=== PATIENT | female | born 1980 | race American Indian/Alaskan Native ===

== ENCOUNTER 2019-05-02 00:33 | Emergency (ER) | payer MEDICAID ==
[2019-05-02 00:53] VITALS: BP 130/78
[2019-05-02] MEDS ORDERED: BUTALB/ACETAMINOPHEN/CAFFEINE TAB PO ONE (03:41)
[2019-05-02] MEDS ORDERED: AMOXICILLIN/K CLAV 875/125MG TAB PO ONE (03:41)
[2019-05-02] MEDS ORDERED: predniSONE 20 MG TAB PO ONE (03:41)
[2019-05-02] MEDS ORDERED: KETOROLAC 30 MG/1 ML INJ IM ONE (03:41)
--- NOTE | 2019-05-02 04:24 | Emergency Department Report ---
ED Headache HPI - General Chief Complaint: Headache Stated Complaint: HEADACHE X3WKS LT LEG AND ARM PAIN Source: patient Exam Limitations: no limitations - History of Present Illness Initial Comments: Patient is a 38-year-old of female with no past medical history who presents to the ED with complaint of acute onset persistent frontal sinus pressure and headache with lightheadedness intermittently for the last 1 month, worse in the last 2 days. The patient denies dizziness, nausea, vomiting, diarrhea, chest pain, shortness of breath, syncope, palpitations, seizures, nasal and sinus congestion, sore throat, fever, chills, traumatic injury or change in vision and neck pain Timing/Duration: constant, waxing and waning, other (1 month) Quality: severe, pressure, sharp Head Injury Location: frontal Recent Head Trauma: no recent headache/trauma Associated Symptoms: denies symptoms, facial pain, sinus infection. denies: confusion, fever/chills, loss of consciousness, nausea/vomiting, nasal drainage, numbness in legs/feet, seizures, stiff neck, vision changes, weakness Allergies/Adverse Reactions: Allergies No Known Allergies Allergy (Unverified 05/02/19 02:04) Home Medications: Ambulatory Orders Amoxicillin/Potassium Clav [Augmentin 875-125 Tablet] 1 each PO Q12H #20 tablet 05/02/19 Butalb/Acetamin/Caff 50-325-40 [Fioricet 50-325-40] 1 - 2 tab PO Q6HR PRN #15 tab 05/02/19 Ketorolac [Toradol] 10 mg PO Q8H PRN #20 tablet 05/02/19 Ondansetron [Zofran Odt] 4 mg PO Q6H PRN #15 tab.rapdis 05/02/19 Prednisone [predniSONE 10 mg (6-Day Pack, 21 Tabs)] 10 mg PO .TAPER #21 tab.ds.pk 05/02/19 ED Review of Systems ROS: Stated complaint: HEADACHE X3WKS LT LEG AND ARM PAIN Other details as noted in HPI Constitutional: denies: chills, fever Eyes: denies: eye pain, eye discharge, vision change ENT: congestion, other (palpable frontal sinus tenderness). denies: ear pain, t hroat pain Respiratory: denies: cough, shortness of breath, wheezing Cardiovascular: denies: chest pain, palpitations Endocrine: no symptoms reported Gastrointestinal: denies: abdominal pain, nausea, diarrhea Genitourinary: denies: urgency, dysuria, discharge Musculoskeletal: denies: back pain, joint swelling, arthralgia Skin: denies: rash, lesions Neurological: headache. denies: weakness, paresthesias Psychiatric: denies: anxiety, depression Hematological/Lymphatic: denies: easy bleeding, easy bruising ED Past Medical Hx - Past Medical History Previous Medical History?: Yes Additional medical history: Restless Leg Syndrome, Scoliosis - Surgical History Past Surgical History?: No - Social History Smoking Status: Current Every Day Smoker Substance Use Type: None - Medications Home Medications: Home Medications Medication Instructions Recorded Confirmed Last Taken Type Amoxicillin/Potassium Clav 1 each PO Q12H #20 tablet 05/02/19 Unknown Rx [Augmentin 875-125 Tablet] Butalb/Acetamin/Caff 50-325-40 1 - 2 tab PO Q6HR PRN #15 tab 05/02/19 Unknown Rx [Fioricet 50-325-40] Ketorolac [Toradol] 10 mg PO Q8H PRN #20 tablet 05/02/19 Unknown Rx Ondansetron [Zofran Odt] 4 mg PO Q6H PRN #15 tab.rapdis 05/02/19 Unknown Rx Prednisone [predniSONE 10 mg 10 mg PO .TAPER #21 tab.ds.pk 05/02/19 Unknown Rx (6-Day Pack, 21 Tabs)] ED Physical Exam - General Limitations: No Limitations General appearance: alert, in no apparent distress - Head Head exam: Present: atraumatic, normocephalic, normal inspection - Eye Eye exam: Present: normal appearance, PERRL, EOMI - ENT ENT exam: Present: normal exam, mucous membranes moist, TM's normal bilaterally, normal external ear exam, other (palpable severe frontal sinus tenderness) - Neck Neck exam: Present: normal inspection, full ROM - Respiratory Respiratory exam: Present: normal lung sounds bilaterally. Absent: respiratory distress, wheezes, chest wall tenderness, accessory muscle use, decreased breath sounds - Cardiovascular Cardiovascular Exam: Present: regular rate, normal rhythm, normal heart sounds. Absent: systolic murmur, diastolic murmur, rubs, gallop - GI/Abdominal GI/Abdominal exam: Present: soft, normal bowel sounds. Absent: tenderness, guarding, hyperactive bowel sounds, hypoactive bowel sounds - Extremities Exam Extremities exam: Present: normal inspection, full ROM, normal capillary refill - Back Exam Back exam: Present: normal inspection, full ROM. Absent: tenderness, muscle spasm, paraspinal tenderness - Neurological Exam Neurological exam: Present: alert, oriented X3, CN II-XII intact, normal gait, reflexes normal - Psychiatric Psychiatric exam: Present: normal affect, normal mood - Skin Skin exam: Present: warm, dry, intact, normal color. Absent: rash ED Course Vital Signs 05/02/19 00:40 Temperature 99.1 F Pulse Rate 96 H Respiratory 18 Rate Blood Pressure 130/78 O2 Sat by Pulse 98 Oximetry ED Medical Decision Making - Medical Decision Making This is a 38-year-old -[place] female with no past medical history presented to the ED with complaint of acute onset persistent frontal sinus pressure and headache for the last 1 month intermittently worse in the last 1 week. In the ED, patient is alert and oriented 3 and is not in distress. Patient was treated for pain in the ED and also given initial oral antibiotic for a suspected frontal sinusitis. Patient was sent home on medications and advised to follow-up with her primary care physician in 5-7 days for reevaluation. Patient was advised to return to the ED immediately if symptoms get worse. - Differential Diagnosis sinusitis; sinus headache, URI; migraine headache Critical care attestation.: If time is entered above; I have spent that time in minutes in the direct care of this critically ill patient, excluding procedure time. ED Disposition Clinical Impression: Sinus headache Acute frontal sinusitis Qualifiers: Recurrence: non-recurrent Qualified Code(s): J01.10 - Acute frontal sinusitis, unspecified Disposition: DC-01 TO HOME OR SELFCARE Is pt being admited?: No Does the pt Need Aspirin: No Condition: Stable Instructions: Acute Bacterial Rhinosinusitis (ED), Acute Headache (ED) Additional Instructions: Take medications with food, drink plenty of fluids and follow up with your primary care physician in 7-10 days for reevaluation. Return to the ED immediately if symptoms get worse. Prescriptions: Amoxicillin/Potassium Clav [Augmentin 875-125 Tablet] 1 each PO Q12H #20 tablet Butalb/Acetamin/Caff 50-325-40 [Fioricet 50-325-40] 1 - 2 tab PO Q6HR PRN #15 tab PRN Reason: Headache Prednisone [predniSONE 10 mg (6-Day Pack, 21 Tabs)] 10 mg PO .TAPER #21 tab.ds.pk Ketorolac [Toradol] 10 mg PO Q8H PRN #20 tablet PRN Reason: Pain Ondansetron [Zofran Odt] 4 mg PO Q6H PRN #15 tab.rapdis PRN Reason: Nausea Referrals: PRIMARY CARE, [Primary Care Provider] - 3-5 Days Time of Disposition: 04:28 Print Language: KINYARWANDA
== END 2019-05-02 04:59 | disposition home or self-care (01) ==
LOC: ED 00:33
DX: J01.10 Acute frontal sinusitis, unspecified (principal); R51 Headache; F17.200 Nicotine dependence, unspecified, uncomplicated; Z79.899 Other long term (current) drug therapy
CPT/HCPCS: 96372; 99282; J1885; J7512

== ENCOUNTER 2019-05-29 03:20 | Emergency (ER) | payer MEDICAID ==
[2019-05-29 03:39] VITALS: BP 116/85
--- NOTE | 2019-05-29 08:03 | Emergency Department Report ---
ED Back Pain/Injury HPI - General Chief Complaint: Back Pain/Injury Stated Complaint: PAIN ON LEFT SIDE Time Seen by Provider: 05/29/19 07:20 Source: patient Limitations: No Limitations - History of Present Illness Initial Comments: This is a 38-year-old female with no prior medical history who presents to ED complaining of left-sided flank pain that began last night. Patient denies any fall trauma or injuries. Patient denies any heavy lifting recently. Patient states pain is intermittent in and sometimes worse with movement. She denies nausea vomiting fever MD Complaint: back pain Place: home Radiation: none Severity: moderate Severity scale (0 -10): 6 Improves With: none - Related Data Previous Rx's Medication Instructions Recorded Last Taken Type Amoxicillin/Potassium Clav 1 each PO Q12H #20 tablet 05/02/19 Unknown Rx [Augmentin 875-125 Tablet] Butalb/Acetamin/Caff 50-325-40 1 - 2 tab PO Q6HR PRN #15 tab 05/02/19 Unknown Rx [Fioricet 50-325-40] Ondansetron [Zofran Odt] 4 mg PO Q6H PRN #15 tab.rapdis 05/02/19 Unknown Rx Prednisone [predniSONE 10 mg 10 mg PO .TAPER #21 tab.ds.pk 05/02/19 Unknown Rx (6-Day Pack, 21 Tabs)] Ketorolac [Toradol] 10 mg PO Q8H PRN #20 tablet 05/29/19 Unknown Rx Allergies Allergy/AdvReac Type Severity Reaction Status Date / Time No Known Allergies Allergy Unverified 05/02/19 02:04 ED Review of Systems ROS: Stated complaint: PAIN ON LEFT SIDE Other details as noted in HPI Comment: All other systems reviewed and negative ED Past Medical Hx - Past Medical History Restless Leg Syndrome, Scoliosis ED Back Pain Physical Exam - Exam General: Vital signs noted. No distress. Alert and acting appropriately. Back/Abdomen: No Abdominal Tenderness, No Perithoracic Tenderness, No Perilumbar Tenderness, No Sacroiliac Tenderness, No Flank Tenderness, No Straight Leg Raise Pain Neuro: Yes Normal Sensation, Yes Normal DTR's, Yes Normal Gait, No Motor Weakness ED Course Vital Signs 05/29/19 03:37 Temperature 97.4 F L Pulse Rate 86 Respiratory 20 Rate Blood Pressure 116/85 O2 Sat by Pulse 100 Oximetry Ed Back Pain Tests - Tests Tests: Normal UA ED Medical Decision Making - Medical Decision Making 38-year-old female who presented to ED with left flank pain Urinalysis urine test are negative, no abnormal findings Discussed findings with the patient. Patient received pain medication ED. she received IVf and Toradol Discussed patient follow up primary care physician. Vital signs are normal patient is in no acute distress. Referrals given the patient Discussed with patient if she has worsening symptoms to return to the ER immediately - Differential Diagnosis UTI, kidney stone, myalgia Critical care attestation.: If time is entered above; I have spent that time in minutes in the direct care of this critically ill patient, excluding procedure time. ED Disposition Clinical Impression: Acute left flank pain Disposition: TO HOME OR SELFCARE Is pt being admited?: No Does the pt Need Aspirin: No Condition: Stable Instructions: Flank Pain (ED) Additional Instructions: Follow-up with the primary care physician in 2-3 days. Take pain medication as pr If you have any worsening or new symptoms was returned to the ED Prescriptions: Ketorolac [Toradol] 10 mg PO Q8H PRN #20 tablet PRN Reason: Pain Referrals: DIANE EUGENE MD [Primary Care Provider] - 3-5 Days [facility] [Outside] - 3-5 Days [facility] [Outside] - 3-5 Days [facility] [Outside] - 3-5 Days Forms: Work/School Release Form(ED) Time of Disposition: 09:34
[2019-05-29] MEDS ORDERED: SODIUM CHLORIDE 0.9% 1000 ML 1,000 ML IV ONE (08:06)
[2019-05-29] MEDS ORDERED: ONDANSETRON 4 MG/2 ML INJ IV ONE (08:06)
[2019-05-29] MEDS ORDERED: KETOROLAC 30 MG/1 ML INJ IV ONE (08:06)
[2019-05-29 08:14] LABS: HCG Qualitative,Urine Negative (Negative)
[2019-05-29 08:16] LABS: Bilirubin,Urine NEG (Negative); Blood,Urine NEG (Negative); Color,Urine Yellow (Yellow); Mucus,Urine 2+ /HPF; Protein,Urine <15 mg/dL mg/dL (Negative)
== END 2019-05-29 09:46 | disposition home or self-care (01) ==
LOC: ED 03:20
DX: R10.9 Unspecified abdominal pain (principal); M54.9 Dorsalgia, unspecified; Z79.899 Other long term (current) drug therapy
CPT/HCPCS: 81001; 81025; 96374; 96375; 99283; J1885; J2405; J7030

== ENCOUNTER 2019-07-04 00:40 | Emergency (ER) | payer MEDICAID ==
[2019-07-04 00:59] VITALS: BP 130/88
== END 2019-07-04 04:00 | disposition left against medical advice (07) ==
LOC: ED 00:40
DX: M79.602 Pain in left arm (principal); Z53.21 Procedure and treatment not carried out due to patient leaving prior to being seen by health care provider

== ENCOUNTER 2019-08-15 16:03 | Emergency (ER) | payer SELFPAY ==
--- NOTE | 2019-08-15 19:51 | Emergency Department Report ---
Chief Complaint: Extremity Injury, Upper Stated Complaint: LEFT ARM TINGLING Time Seen by Provider: 08/15/19 19:37 - HPI History of Present Illness: Patient is a 38-year-old female presents emergency room with complaints of left lateral elbow pain that began 3 months ago. She states that occasionally she notices that it swells. She states that the pain will radiate down her left arm. She denies any fall or injury. She denies any fever, nausea, vomiting, diarrhea. She states that she has used icy hot. She states that when she elevates that she feels some relief. She has not seen anyone for this. 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 She has a past medical history of hypertension but states that she was taken off her blood pressure medication by her doctor because she had lost weight but recently has gained all the weight back. Initial triage vitals with mild tachycardia and elevation in blood pressure which improved upon repeat to normal on exam: Patient has tenderness to palpation over the left lateral elbow region over the lateral epicondyle, she has full range of motion but discomfort upon full flexion and discomfort with pronation, no edema, no erythema, no edema to the olecranon process, no increased warmth, neurovascularly intact Examination consistent with lateral epicondylitis pt has had no acute traumatic injury this has been ongiong for 3 months Discussed supportive care and symptomatic treatment with patient Patient will be referred to a orthopedic doctor for further evaluation and management Medical screening examination performed and there is no threat to life or limb at this time - Exam Vital Signs: Vital Signs 08/15/19 16:10 Temperature 98.1 F Pulse Rate 108 H Respiratory 15 Rate Blood Pressure 167/88 [Left] O2 Sat by Pulse 100 Oximetry MSE screening note: Focused history and physical exam performed ED Disposition for MSE Clinical Impression: Elevated blood pressure reading Tennis elbow Qualifiers: Laterality: left Qualified Code(s): M77.12 - Lateral epicondylitis, left elbow Disposition: MED SCREENING EXAM-LEFT Is pt being admited?: No Does the pt Need Aspirin: No Condition: Stable Instructions: Tennis Elbow (ED), Chronic Hypertension (ED) Additional Instructions: May alternate Tylenol then ibuprofen every 6-8 hours as needed for discomfort. May use a [place] balm or arthritis ointment. May use ice for 15 minutes at a time, heating pad for 15 minutes at a time, rest, elevation of the arm. May use an elbow brace while working but do not wear while sleeping. And do not wear too tightly. Follow-up with an orthopedic doctor. Follow-up with your primary care doctor. Please keep a blood pressure log and take your blood pressure 3 times a day and take this to your primary care doctor. Eat a low sodium diet, incorporate 30 minutes of daily exercise, increase your water intake. Return to the emergency room for any new or worsening symptoms. Referrals: PRIMARY CAREMD [Primary Care Provider] - 3-5 Days VICTOR HUGO HUYNH MD [Staff Physician] - 3-5 Days [facility] [Provider Group] - 3-5 Days Forms: Work/School Release Form(ED) Time of Disposition: 19:51 Print Language: BAHRAINI
[2019-08-15 19:59] VITALS: BP 136/72
== END 2019-08-15 19:59 | disposition left against medical advice (07) ==
LOC: ED 16:03
DX: R03.0 Elevated blood-pressure reading, without diagnosis of hypertension (principal); M77.12 Lateral epicondylitis, left elbow
CPT/HCPCS: 99282

== ENCOUNTER 2020-06-29 15:28 | Emergency (ER) | payer SELFPAY ==
[2020-06-29 16:40] VITALS: BP 137/86
--- NOTE | 2020-06-29 17:18 | Emergency Department Report ---
ED General Adult HPI - General Chief complaint: Headache Stated complaint: SEVERE HEADACHE Time Seen by Provider: 06/29/20 16:47 Source: patient Mode of arrival: Ambulatory Limitations: No Limitations - History of Present Illness Initial comments: pt is a 39 yo female who presents to the ED with c/o a frontal headache and left lower back pain that began a week ago. she denies any fall or injury. she states she frequently gets both headaches and lower back pain and it feels similar to previous symptoms. she states she has a hx of scoliosis. she states occasionally the pain goes down the left leg. she denies any fever, N/V/D, dysuria, abnormal vaginal discharge, abd pain, CP, SOB, dark urine or odor to the urine, urinary frequency or urgency, vision changes, numbness, weakness, speech disturbance, or gait disturbance. she has only been taking tylenol for her symptoms. she has not followed up with her primary care doctor. no other pmhx. allergy: penicillin. [facility] 06/13/2020. - Related Data Previous Rx's Medication Instructions Recorded Last Taken Type Amoxicillin/Potassium Clav 1 each PO Q12H #20 tablet 05/02/19 Unknown Rx [Augmentin 875-125 Tablet] Butalb/Acetamin/Caff 50-325-40 1 - 2 tab PO Q6HR PRN #15 tab 05/02/19 Unknown Rx [Fioricet 50-325-40] Ondansetron [Zofran Odt] 4 mg PO Q6H PRN #15 tab.rapdis 05/02/19 Unknown Rx Prednisone [predniSONE 10 mg 10 mg PO .TAPER #21 tab.ds.pk 05/02/19 Unknown Rx (6-Day Pack, 21 Tabs)] Ketorolac [Toradol] 10 mg PO Q8H PRN #20 tablet 05/29/19 Unknown Rx Butalb/Acetaminophen/Caffeine 1 cap PO Q8HR PRN #12 cap 06/29/20 Unknown Rx [Fioricet 50-300-40 mg CAP] Menthol/Camphor [[place] 1 applicatio TP BID #18 oint...g. 06/29/20 Unknown Rx Ointment] methOCARBAMOL [Robaxin TAB] 500 mg PO BID PRN #14 tab 06/29/20 Unknown Rx Allergies Allergy/AdvReac Type Severity Reaction Status Date / Time Penicillins Allergy Itching Verified 08/15/19 16:06 ED Review of Systems ROS: Stated complaint: SEVERE HEADACHE Other details as noted in HPI Comment: All other systems reviewed and negative ED Past Medical Hx - Past Medical History Previous Medical History?: Yes Additional medical history: Restless Leg Syndrome, Scoliosis. 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TAPER #21 tab.ds.pk 05/02/19 Unknown Rx (6-Day Pack, 21 Tabs)] Ketorolac [Toradol] 10 mg PO Q8H PRN #20 tablet 05/29/19 Unknown Rx Butalb/Acetaminophen/Caffeine 1 cap PO Q8HR PRN #12 cap 06/29/20 Unknown Rx [Fioricet 50-300-40 mg CAP] Menthol/Camphor [[place] 1 applicatio TP BID #18 oint...g. 06/29/20 Unknown Rx Ointment] methOCARBAMOL [Robaxin TAB] 500 mg PO BID PRN #14 tab 06/29/20 Unknown Rx ED Physical Exam - General Limitations: No Limitations General appearance: alert, in no apparent distress - Head Head exam: Present: atraumatic, normocephalic - Eye Eye exam: Present: normal appearance, PERRL, EOMI. Absent: periorbital swelling, periorbital tenderness Pupils: Present: normal accommodation - ENT ENT exam: Present: mucous membranes moist - Neck Neck exam: Present: normal inspection, full ROM. Absent: tenderness - Respiratory Respiratory exam: Present: normal lung sounds bilaterally. Absent: respiratory distress, wheezes, rales, rhonchi, stridor, chest wall tenderness, accessory muscle use, decreased breath sounds, prolonged expiratory - Cardiovascular Cardiovascular Exam: Present: regular rate, normal rhythm, normal heart sounds. Absent: systolic murmur, diastolic murmur, rubs, gallop - Back Exam Back exam: Present: normal inspection, full ROM, paraspinal tenderness (left lumbar paraspinal muscular ttp, no midline C-spine, T-spine or L-spine ttp, no step offs, no deformities). Absent: vertebral tenderness - Neurological Exam Neurological exam: Present: alert, oriented X3, CN II-XII intact, normal gait, other (normal finger to nose, normal heel to romo, 5/5 muscle strength in the BUE/BLE, no pronator drift, no facial asymmetry, no focal neuro deficit). Absent: motor sensory deficit - Psychiatric Psychiatric exam: Present: normal affect, normal mood - Skin Skin exam: Present: warm, dry, intact ED Course Vital Signs 06/29/20 16:36 Temperature 98.2 F Pulse Rate 79 Respiratory 18 Rate Blood Pressure 137/86 O2 Sat by Pulse 100 Oximetry ED Medical Decision Making - Medical Decision Making pt is a 39 yo female who presents to the ED with c/o a frontal headache and left lower back pain that began a week ago. she denies any fall or injury. she states she frequently gets both headaches and lower back pain and it feels similar to previous symptoms. she states she has a hx of scoliosis. she states occasionally the pain goes down the left leg. she denies any fever, N/V/D, dysuria, abnormal vaginal discharge, abd pain, CP, SOB, dark urine or odor to the urine, urinary frequency or urgency, vision changes, numbness, weakness, speech disturbance, or gait disturbance. she has only been taking tylenol for her symptoms. she has not followed up with her primary care doctor. no other pmhx. allergy: penicillin. [facility] 06/13/2020. Vitals are stable. On exam:left lumbar paraspinal muscular ttp, no midline C-spine, T-spine or L-spine ttp, no step offs, no deformities, no focal neuro deficits. Patient has no fever, no meningeal signs. She has no red flag warning signs of back pain, no trauma, no unexplained weight loss, no neuro deficits, age is not greater than 50, no fever, no IV drug use, no steroid use, no history of cancer. Patient has had these symptoms in the past. Symptoms could be related to migraine headaches versus tension headaches. Back pain could be related to sciatica versus her chronic scoliosis. Patient given prescription for Fioricet, Robaxin, tiger balm ointment. Advised patient please use medication as prescribed. do not drive or operate heavy machinery while taking muscle relaxer robaxin. may use ice pack, heating pad, rest, epsom salt bath. follow up with a primary care doctor. follow up with an orthopedic doctor. return to the emergency room for any new or worsening symptoms. Critical care attestation.: If time is entered above; I have spent that time in minutes in the direct care of this critically ill patient, excluding procedure time. ED Disposition Clinical Impression: Headache Qualifiers: Headache type: unspecified Headache chronicity pattern: acute headache Intractability: not intractable Qualified Code(s): R51.9 - Headache, unspecified Low back pain Qualifiers: Chronicity: acute Back pain laterality: left Sciatica presence: with sciatica Sciatica laterality: sciatica of left side Qualified Code(s): M54.42 - Lumbago with sciatica, left side Disposition: DC-01 TO HOME OR SELFCARE Is pt being admited?: No Does the pt Need Aspirin: No Condition: Stable Instructions: Acute Back Pain, Adult, General Headache Without Cause, [id number] Additional Instructions: please use medication as prescribed. do not drive or operate heavy machinery while taking muscle relaxer robaxin. may use ice pack, heating pad, rest, epsom salt bath. follow up with a primary care doctor. follow up with an orthopedic doctor. return to the emergency room for any new or worsening symptoms. Prescriptions: Butalb/Acetaminophen/Caffeine [Fioricet 50-300-40 mg CAP] 1 cap PO Q8HR PRN #12 cap PRN Reason: headache methOCARBAMOL [Robaxin TAB] 500 mg PO BID PRN #14 tab PRN Reason: pain Menthol/Camphor [[place]vie Ointment] 1 applicatio TP BID #18 oint...g. Referrals: LOREN MELO MD [Primary Care Provider] - 2-3 Days VICTOR HUGO HUYNH MD [Staff Physician] - 2-3 Days [facility] [Provider Group] - 2-3 Days Forms: Accompanied Note, Work/School Release Form(ED) Time of Disposition: 17:19 Print Language: GRENADIAN
== END 2020-06-29 18:42 | disposition home or self-care (01) ==
LOC: ED 15:28
DX: R51.9 Headache, unspecified (principal); M54.5 Low back pain; F17.200 Nicotine dependence, unspecified, uncomplicated; Z98.51 Tubal ligation status; Z79.899 Other long term (current) drug therapy
CPT/HCPCS: 99282

== ENCOUNTER 2021-03-21 02:58 | Emergency (ER) | payer OTHER ==
[2021-03-21] MEDS ORDERED: HYDROcodone/ACETAMINOPHEN 5-325 MG TAB PO STA (03:54)
--- NOTE | 2021-03-21 04:08 | Emergency Department Report ---
ED ENT HPI - General Chief complaint: Dental/Oral Stated complaint: TOOTH PAIN Time Seen by Provider: 03/21/21 03:48 Source: patient Mode of arrival: Ambulatory Limitations: No Limitations - History of Present Illness MD complaint: tooth pain -: Gradual, Sudden Location: tooth # 1 - Dental pain with severe erosion and adjacent gingival erythema no exudate noted. Tongue and uvula midline. - Related Data Previous Rx's Medication Instructions Recorded Last Taken Type Amoxicillin/Potassium Clav 1 each PO Q12H #20 tablet 05/02/19 Unknown Rx [Augmentin 875-125 Tablet] Butalb/Acetamin/Caff 50-325-40 1 - 2 tab PO Q6HR PRN #15 tab 05/02/19 Unknown Rx [Fioricet 50-325-40] Ondansetron [Zofran Odt] 4 mg PO Q6H PRN #15 tab.rapdis 05/02/19 Unknown Rx Prednisone [predniSONE 10 mg 10 mg PO .TAPER #21 tab.ds.pk 05/02/19 Unknown Rx (6-Day Pack, 21 Tabs)] Ketorolac [Toradol] 10 mg PO Q8H PRN #20 tablet 05/29/19 Unknown Rx Butalb/Acetaminophen/Caffeine 1 cap PO Q8HR PRN #12 cap 06/29/20 Unknown Rx [Fioricet 50-300-40 mg CAP] Menthol/Camphor [[place] 1 applicatio TP BID #18 oint...g. 06/29/20 Unknown Rx Ointment] methOCARBAMOL [Robaxin TAB] 500 mg PO BID PRN #14 tab 06/29/20 Unknown Rx Chlorhexidine Mouthwash [Peridex] 15 ml MM BID #1 bottle 03/21/21 Unknown Rx Clindamycin [Clindamycin CAP] 150 mg PO Q8HR #21 capsule 03/21/21 Unknown Rx Ketorolac [Toradol] 10 mg PO Q6H PRN #15 tablet 03/21/21 Unknown Rx Lidocaine Viscous 2% 5 ml MM Q3H PRN #120 udc 03/21/21 Unknown Rx Allergies Allergy/AdvReac Type Severity Reaction Status Date / Time Penicillins Allergy Itching Verified 08/15/19 16:06 ED Dental HPI - General Chief complaint: Dental/Oral Stated complaint: TOOTH PAIN Time Seen by Provider: 03/21/21 03:48 Source: patient Mode of arrival: Ambulatory Limitations: No Limitations - Related Data Previous Rx's Medication Instructions Recorded Last Taken Type Amoxicillin/Potassium Clav 1 each PO Q12H #20 tablet 05/02/19 Unknown Rx [Augmentin 875-125 Tablet] Butalb/Acetamin/Caff 50-325-40 1 - 2 tab PO Q6HR PRN #15 tab 05/02/19 Unknown Rx [Fioricet 50-325-40] Ondansetron [Zofran Odt] 4 mg PO Q6H PRN #15 tab.rapdis 05/02/19 Unknown Rx Prednisone [predniSONE 10 mg 10 mg PO .TAPER #21 tab.ds.pk 05/02/19 Unknown Rx (6-Day Pack, 21 Tabs)] Ketorolac [Toradol] 10 mg PO Q8H PRN #20 tablet 05/29/19 Unknown Rx Butalb/Acetaminophen/Caffeine 1 cap PO Q8HR PRN #12 cap 06/29/20 Unknown Rx [Fioricet 50-300-40 mg CAP] Menthol/Camphor [[place] 1 applicatio TP BID #18 oint...g. 06/29/20 Unknown Rx Ointment] methOCARBAMOL [Robaxin TAB] 500 mg PO BID PRN #14 tab 06/29/20 Unknown Rx Chlorhexidine Mouthwash [Peridex] 15 ml MM BID #1 bottle 03/21/21 Unknown Rx Clindamycin [Clindamycin CAP] 150 mg PO Q8HR #21 capsule 03/21/21 Unknown Rx Ketorolac [Toradol] 10 mg PO Q6H PRN #15 tablet 03/21/21 Unknown Rx Lidocaine Viscous 2% 5 ml MM Q3H PRN #120 udc 03/21/21 Unknown Rx Allergies Allergy/AdvReac Type Severity Reaction Status Date / Time Penicillins Allergy Itching Verified 08/15/19 16:06 ED Review of Systems ROS: Stated complaint: TOOTH PAIN Other details as noted in HPI Comment: All other systems reviewed and negative ED Past Medical Hx - Past Medical History Previous Medical History?: Yes Additional medical history: Restless Leg Syndrome, Scoliosis. Guillain [place] @ age 12 - Surgical History Past Surgical History?: Yes Additional Surgical History: tubaligation - Social History Smoking Status: Current Every Day Smoker Substance Use Type: None - Medications Home Medications: Home Medications Medication Instructions Recorded Confirmed Last Taken Type Amoxicillin/Potassium Clav 1 each PO Q12H #20 tablet 05/02/19 Unknown Rx [Augmentin 875-125 Tablet] Butalb/Acetamin/Caff 50-325-40 1 - 2 tab PO Q6HR PRN #15 tab 05/02/19 Unknown Rx [Fioricet 50-325-40] Ondansetron [Zofran Odt] 4 mg PO Q6H PRN #15 tab.rapdis 05/02/19 Unknown Rx Prednisone [predniSONE 10 mg 10 mg PO .TAPER #21 tab.ds.pk 05/02/19 Unknown Rx (6-Day Pack, 21 Tabs)] Ketorolac [Toradol] 10 mg PO Q8H PRN #20 tablet 05/29/19 Unknown Rx Butalb/Acetaminophen/Caffeine 1 cap PO Q8HR PRN #12 cap 06/29/20 Unknown Rx [Fioricet 50-300-40 mg CAP] Menthol/Camphor [[place] 1 applicatio TP BID #18 oint...g. 06/29/20 Unknown Rx Ointment] methOCARBAMOL [Robaxin TAB] 500 mg PO BID PRN #14 tab 06/29/20 Unknown Rx Chlorhexidine Mouthwash [Peridex] 15 ml MM BID #1 bottle 03/21/21 Unknown Rx Clindamycin [Clindamycin CAP] 150 mg PO Q8HR #21 capsule 03/21/21 Unknown Rx Ketorolac [Toradol] 10 mg PO Q6H PRN #15 tablet 03/21/21 Unknown Rx Lidocaine Viscous 2% 5 ml MM Q3H PRN #120 udc 03/21/21 Unknown Rx ED Physical Exam - General Limitations: No Limitations General appearance: alert, in no apparent distress - Head Head exam: Present: atraumatic, normocephalic - Eye Eye exam: Present: normal appearance, PERRL, EOMI Pupils: Present: normal accommodation - ENT ENT exam: Present: normal exam, mucous membranes moist, TM's normal bilaterally - Neck Neck exam: Present: normal inspection - Respiratory Respiratory exam: Present: normal lung sounds bilaterally. Absent: respiratory distress - Cardiovascular Cardiovascular Exam: Present: regular rate, normal rhythm. Absent: systolic murmur, diastolic murmur, rubs, gallop - GI/Abdominal GI/Abdominal exam: Present: soft, normal bowel sounds - Extremities Exam Extremities exam: Present: normal inspection - Back Exam Back exam: Present: normal inspection - Neurological Exam Neurological exam: Present: alert, oriented X3 - Psychiatric Psychiatric exam: Present: normal affect, normal mood - Skin Skin exam: Present: warm, dry, intact, normal color. Absent: rash ED Course Vital Signs 03/21/21 03:01 Temperature 98.6 F Pulse Rate 78 Respiratory 17 Rate Blood Pressure 138/93 [Right] O2 Sat by Pulse 96 Oximetry Critical care attestation.: If time is entered above; I have spent that time in minutes in the direct care of this critically ill patient, excluding procedure time. ED Disposition Clinical Impression: Infected dental caries Disposition: HOME / SELF CARE / HOMELESS Is pt being admited?: No Does the pt Need Aspirin: No Condition: Stable Instructions: Dental Abscess, Preventive Dental Care, Adult Prescriptions: Clindamycin [Clindamycin CAP] 150 mg PO Q8HR #21 capsule Lidocaine Viscous 2% 5 ml MM Q3H PRN #120 udc PRN Reason: Pain, Moderate (4-6) Chlorhexidine Mouthwash [Peridex] 15 ml MM BID #1 bottle Ketorolac [Toradol] 10 mg PO Q6H PRN #15 tablet PRN Reason: Pain [facility] - [facility]5 [facility]
[2021-03-21 04:17] VITALS: BP 118/79
== END 2021-03-21 04:38 | disposition home or self-care (01) ==
LOC: ED 02:58
DX: K02.9 Dental caries, unspecified (principal); F17.200 Nicotine dependence, unspecified, uncomplicated; Z88.0 Allergy status to penicillin
CPT/HCPCS: 99282